=== PATIENT | female | born 1980 | race Caucasian/White ===

== ENCOUNTER 2020-01-06 20:43 | Emergency (ER) | payer OTHER, SELFPAY ==
[2020-01-06 20:55] VITALS: BP 127/94; PULSE 80; RESP 18; TEMP 36.7; O2SAT 98; BMI 24.9
[2020-01-06 20:55] LABS: Apearance,Urine Clear (Clear); Bilirubin,Urine Negative (Negative); Blood, Urine Negative (Negative); Color,Urine Yellow (Yellow); Glucose,Urine (UA) Negative (Negative); Ketones,Urine Negative (Negative); Protein,Urine Negative (Negative); UTC Leukocyte Esterase,Urine Negative (Negative); UTC Nitrate,Urine Negative (Negative); Urobilinogen,Urine 0.2 EU/dl (0.2)
--- NOTE | 2020-01-06 21:09 | HMH.EDUTC ---
[facility] – [place] Disposition Clinical Impression: Dysuria Disposition: Still a Patient Condition on Discharge: Good Additional Instructions: Transferred to ER for further workup Referrals: PCPJulianne [Primary Care Provider] - Time of Disposition: 21:13 Medical Decision Making - Maldonado Inquiry Pt receiving controlled substance: No Vital Signs: 01/06/20 20:55 Temperature 98.1 F Temperature Source Oral Pulse Rate [Radial] 80 Respiratory Rate 18 Blood Pressure [Right Arm] 127/94 H Blood Pressure Mean [Right Arm] 105 Blood Pressure Source [Right Arm] Automatic Cuff Blood Pressure Position [Right Arm] Sitting 02 Sat by Pulse Oximetry 98 Oxygen Delivery Method Room Air - Lab Data Lab results reviewed: Yes: I reviewed the patient's lab results. Lab Results 01/06/20 20:50: Urine Color Yellow, Urine Appearance Clear, Urine pH 6.0, Ur Specific [place] 1.020, Urine Protein Negative, Urine Glucose (UA) Negative, Urine Ketones Negative, Urine Blood Negative, Urine Nitrate Negative, Urine Bilirubin Negative, Urine Urobilinogen 0.2, Ur Leukocyte Esterase Negative Medical Decision Narrative: Urine normal, but patient concerned about kidney stone or underlying pathology. She is requesting CT scan and will be transferred to ER. [facility] [place] HPI - General Stated complaint: Possible Kidney strones or Infection Time Seen by Provider: 01/06/20 20:55 Mode of Arrival: Ambulatory Source of Information: Patient Limitations: No Limitations Description of Symptoms (Recalled from Triage Doc. by RN): possible uti left flank pain HEENT Symptoms (Recalled from RN notes): No Resp Symptoms (Recalled from RN notes): No Skin Symptoms (Recalled from RN notes): No MS Symptoms (Recalled from RN notes): No Functional Status (Recalled from RN notes): wnl - History of Present Illness Provider Complaint: Cloudy urine, with sediment, and low back pain X 2 weeks. No fever. No nausea or vomiting. Worse tonight - left flank pain radiating around side. Has urethral pain at times. States she does not stay well hydrated. No urinary frequency. Onset (ago): day(s) (2) Location: abdomen Radiation: back, flank Relieving factors: none Exacerbating factors: none Associated symptoms: denies other symptoms Treatments prior to arrival: none - Related Data Previous Rx's Medication Instructions Recorded amoxicillin 875 mg tablet 875 mg PO BID 10 Days #20 tab 12/11/17 benzonatate 100 mg capsule 100 mg PO TID PRN #30 cap 12/11/17 Allergies Allergy/AdvReac Type Severity Reaction Status Date / Time No Known Allergies Allergy Verified 12/11/17 12:02 - Worker's Comp Is this a Worker's Comp case?: No [facility] History - Hepatitis A Screen Drug use history?: No High risk sexual behaviors?: No History of sexually transmitted infection?: No Currently employed?: No Childcare worker?: No Do you have indoor plumbing?: Yes Do you have electricity?: Yes Attestation statement:: This patient has been screened for Hepatitis A risk factors. I have reviewed the patient's past medical history: Yes Medical History: Denies:: Cancer, Diabetes Mellitus Type 1, Diabetes Mellitus Type 2, MRSA Amputation: No - Social History Smoking Status: Never smoker Alcohol Intake: never Occupational Status: employed Housing: house ROS Obtained: Yes All systems reviewed & no additional complaints - Genitourinary Female Genitourinary: Reports dysuria, Denies urinary frequency Physical Exam - General General appearance: alert, other (uncomfortable) - Head Head exam: atraumatic, normocephalic - Eye Eye exam: Present: PERRL - ENT ENT exam: Present: normal oropharynx - Respiratory Respiratory exam: Present: normal lung sounds bilaterally - Cardiovascular Cardiovascular exam: Present: regular rate, normal rhythm - Abdominal Exam Abdominal exam: Present: soft, normal bowel sounds. Absent: distention, tenderness, guarding - Back Exam Back exam: Pre
[2020-01-06 21:50] VITALS: BP 130/92; PULSE 83; RESP 16; TEMP 37.2; O2SAT 100; BMI 24.9
--- NOTE | 2020-01-06 21:57 | CT_ITS ---
PROCEDURE: CT ABDOMEN PELVIS WO CON CLINICAL INDICATION: flank pain Bilateral flank pain COMPARISON: No exams were available for comparison TECHNIQUE: Axial images obtained with sagittal and coronal reformats. All CT scans at the facility use one or more dose reduction, viz: automated exposure control, ma/kV adjustment per patient size (including targeted exams where dose is matched to indication, i.e. head), or iterative reconstruction technique. FINDINGS: LOWER THORAX: There are bilateral breast implants present. ABDOMEN & PELVIS: Prior cholecystectomy. Liver, spleen, adrenal glands, pancreas, have an unremarkable appearance. No renal or ureteral calculi. No hydronephrosis. There is some cortical scarring of the right kidney. Small nodular opacity is present lateral to the right kidney at 1 by 0.6 cm etiology indeterminate. There is a mild amount of retained colonic feces. No intestinal obstruction or free air. No evidence of appendicitis. The appendix is retrocecal. The uterus is bulky. Right ovary is slightly prominent at 4 by 2.7 cm. The no acute bony findings. There is a small amount of fluid in the cul-de-sac. No acute bony findings. IMPRESSION: 1. No acute finding apparent. 2. Bulky uterus with mild prominence of the right ovary and fluid in the cul-de-sac. Pelvic ultrasound may provide more thorough evaluation. Dictated by: Oz Espinal MD 01/07/2020 07:41 Oz Espinal MD in [place] 01/07/2020 07:41
[2020-01-06 22:00] VITALS: BP 115/71; PULSE 76; RESP 17; O2SAT 99
[2020-01-06 22:30] VITALS: BP 106/72; PULSE 77; RESP 17; O2SAT 98
[2020-01-06 22:39] LABS: Basophils # 0.1 K/mm3 (0-0.2); Basophils % 0.6 % (0.1-2.0); Eosinophils # 0.3 K/mm3 (0.0-0.4); Eosinophils % 2.6 % (0.1-12.0); Hematocrit 42.9 % (37.0-47.0); Hemoglobin 14.8 g/dL (12.2-16.2); Lymphocytes # 3.7 K/mm3 (0.7-4.5); Lymphocytes % 38.5 % (10-50); Mean Corpuscular HGB Conc 34.4 g/dL (31.8-35.4); Mean Corpuscular Hemoglobin 30.2 pg (27.0-31.2); Mean Platelet Volume 7.7 fl (7.4-10.4); Monocytes # 0.6 K/mm3 (0.1-1.0); Monocytes % 5.7 % (1.7-9.3); Neutrophils % 52.5 % (37.0-80.0); Platelet Count 265 K/mm3 (142-424); Red Blood Count 4.88 M/mm3 (4.20-5.40); Red Cell Distribution Width 13.2 % (11.5-17.5); White Blood Count 9.5 K/mm3 (4.8-10.8)
[2020-01-06 22:44] LABS: Chloride 103 mmol/L (98-107)
[2020-01-06 22:45] LABS: Potassium 4.1 mmoL/L (3.5-5.1); Sodium 137 mmol/L (136-145)
[2020-01-06 22:47] LABS: Alanine Aminotransferase 9 U/L (12-78); Aspartate Amino Transferase 24 U/L (14-36); Blood Urea Nitrogen 20 mg/dl (7-17); Creatinine Clearance Estimated 87 mL/min (50-200); Estimated Glomerular Filt Rate 70 ml/min (>60); GFR (African American) 84 ML/MIN (>60)
[2020-01-06 22:48] LABS: Albumin Level 4.4 g/dl (3.5-5.0); Albumin/Globulin Ratio 1.6 (1.1-1.8); Alkaline Phosphatase 71 U/L (38-126); Anion Gap 10.1 mEq/L (5-15); Bilirubin,Total 0.4 mg/dl (0.2-1.3); Calcium 9.3 mg/dl (8.4-10.2); Carbon Dioxide 28 mmol/L (22.0-30.0); Globulin 2.7 g/dL (1.3-3.2); Glucose 91 mg/dl (74-100); Total Protein,Serum 7.1 g/dl (6.3-8.2)
[2020-01-06 23:00] VITALS: BP 119/82; PULSE 74; RESP 17; O2SAT 99
[2020-01-06 23:12] LABS: Urine Pregnancy, HCG Qual. Negative (Negative)
--- NOTE | 2020-01-06 23:17 | HMH.EDUROGF ---
ED Disposition Clinical Impression: Dysuria, Flank pain, acute Disposition: Home, Self-Care Condition on Discharge: Good Instructions: DI for Flank Pain Additional Instructions: see pcp and insurance analyst for follow up and urine culture results Prescriptions: levoFLOXacin [Levaquin 500mg tab] 500 mg PO DAILY #7 tab Transmission Status: Pending to [id number] Referrals: PCP,No [Primary Care Provider] - - Critical Care Critical Care Time: No Attestation: On 01/06/20, the high probability of a clinically significant, sudden or life threatening deterioration of the following system(s) required my full and direct attention, intervention and personal management. The time I documented below is in addition to time spent performing reported procedures but includes the following listed in this critical care notation. Medical Decision Making - Medical Records Medical records reviewed: Yes: I reviewed the patient's medical records. - Maldonado Inquiry Pt receiving controlled substance: No Vital Signs: 01/06/20 20:55 01/06/20 21:50 01/06/20 22:00 Temperature 98.1 F 99.0 F Temperature Source Oral Oral Pulse Rate [Radial] 80 83 76 Respiratory Rate 18 16 17 Blood Pressure [Right Arm] 127/94 H 130/92 H 115/71 Blood Pressure Mean [Right Arm] 105 104 85 Blood Pressure Source [Right Arm] Automatic Cuff Automatic Cuff Automatic Cuff Blood Pressure Position [Right Arm] Sitting Sitting Supine 02 Sat by Pulse Oximetry 98 100 99 Oxygen Delivery Method Room Air Room Air Room Air 01/06/20 22:30 01/06/20 23:00 Temperature Temperature Source Pulse Rate [Radial] 77 74 Respiratory Rate 17 17 Blood Pressure [Right Arm] 106/72 L 119/82 Blood Pressure Mean [Right Arm] 83 94 Blood Pressure Source [Right Arm] Automatic Cuff Automatic Cuff Blood Pressure Position [Right Arm] Supine Supine 02 Sat by Pulse Oximetry 98 99 Oxygen Delivery Method Room Air Room Air - Lab Data Lab results reviewed: Yes: I reviewed the patient's lab results. Lab Results 01/06/20 20:50: Urine Color Yellow, Urine Appearance Clear, Urine pH 6.0, Ur Specific [place] 1.020, Urine Protein Negative, Urine Glucose (UA) Negative, Urine Ketones Negative, Urine Blood Negative, Urine Nitrate Negative, Urine Bilirubin Negative, Urine Urobilinogen 0.2, Ur Leukocyte Esterase Negative 01/06/20 21:11: Urine HCG, Qual Negative 01/06/20 22:10: WBC 9.5, RBC 4.88, Hgb 14.8, Hct 42.9, MCV 88.0, MCH 30.2, MCHC 34.4, RDW 13.2, Plt Count 265, MPV 7.7, Neut % (Auto) 52.5, Lymph % (Auto) 38.5, [place] % (Auto) 5.7, Eos % (Auto) 2.6, Baso % (Auto) 0.6, Neut # (Auto) 5.0, Lymph # (Auto) 3.7, [place] # (Auto) 0.6, Eos # (Auto) 0.3, Baso # (Auto) 0.1 01/06/20 22:10: Sodium 137, Potassium 4.1, Chloride 103, Carbon Dioxide 28, Anion Gap 10.1, BUN 20 H, Creatinine 0.90, Estimated Creat Clear 87, Estimated GFR 70, Est GFR ( Amer) 84, Glucose 91, Calcium 9.3, Total Bilirubin 0.4, AST 24, ALT 9 L, Alkaline Phosphatase 71, Total Protein 7.1, Albumin 4.4, Globulin 2.7, Albumin/Globulin Ratio 1.6 Result diagrams: 01/06/20 22:10 01/06/20 22:10 Orders (Tests/Meds): ED MEDICATIONS Generic Name Dose Route Start Last Admin Trade Name Freq PRN Reason Stop Dose Admin Sodium Chloride 1,000 mls @ 999 mls/hr 01/06/20 22:00 01/06/20 22:18 Sod Chlor 0.9% 1000ml Bag IV 01/06/20 23:00 999 mls/hr .Q1H1M RON Administration Discontinued Medications Generic Name Dose Route Start Last Admin Trade Name Freq PRN Reason Stop Dose Admin Ketorolac Tromethamine 30 mg 01/06/20 21:58 01/06/20 22:19 Ketorolac 30mg/Ml Vial IV 01/06/20 21:59 30 mg ONCE ONE Administration Ondansetron HCl 4 mg 01/06/20 21:58 01/06/20 22:18 Ondansetron 4mg/2ml Vial IV 01/06/20 21:59 4 mg ONCE ONE Administration ORDERS Category Date Time Status CT abdomen pelvis wo con Stat Cat Scan 01/06/20 21:57 Taken Urinalysis and Microscopic Stat Lab 01/06/20 23:16 Ordered
[2020-01-06 23:35] LABS: Appearance,Urine CLEAR (Clear); Bilirubin,Urine Negative (Negative); Blood, Urine Negative (Negative); Color,Urine YELLOW (Yellow); Glucose,Urine (UA) Negative (Negative); Ketones,Urine Negative (Negative); Leukocyte Esterase,Urine Negative (Negative); Microscopic, Urine URINE MICROSCOPIC (MICROSCOPIC); Nitrate,Urine Negative (Negative); Protein,Urine Negative (Negative); Specific Gravity, Urine 1.025 (1.005-1.030); Urobilinogen,Urine 0.2 EU/dl (0.2)
[2020-01-06 23:51] VITALS: BP 121/89; PULSE 76; RESP 16; TEMP 37.2; O2SAT 95
== END 2020-01-06 23:53 | disposition home or self-care (01) ==
LOC: UTC 20:57 → ER 21:09
PROVIDERS: Physician Assistant; Emergency Provider Emergency Medicine
DX: R30.0 Dysuria (principal); R10.12 Left upper quadrant pain
CPT/HCPCS: 74176; 80053; 81001; 81003; 81025; 85025; 96365; 96375; 99283; J2405

== ENCOUNTER 2020-07-20 20:02 | Emergency (ER) | payer OTHER, SELFPAY ==
[2020-07-20 20:13] VITALS: BP 150/90; PULSE 93; RESP 16; TEMP 37.3; O2SAT 98; BMI 24.9
[2020-07-20 20:20] VITALS: BP 159/90; PULSE 93; RESP 16; TEMP 37.3; O2SAT 98; BMI 24.7
--- NOTE | 2020-07-20 20:32 | HMH.EDUTC ---
[facility] – [place] Disposition Clinical Impression: Bronchitis Sinusitis Qualifiers: Sinusitis location: unspecified location Chronicity: unspecified Qualified Code(s): J32.9 - Chronic sinusitis, unspecified Disposition: Home, Self-Care Condition on Discharge: Good Instructions: Sinusitis, Acute Bronchitis, DI for Sinusitis, Azithromycin Additional Instructions: ? Start antibiotic today. Be sure to complete entire prescription even if feeling better ? Monitor temp. Tylenol every 4 hours as needed and / or ibuprofen every 6 hours as needed ( As long as your primary care physician has told you that it ok to take both. For fever/aches/pains ER if no less than 101 despite Tylenol or Motrin ? Humidifier/vaporizer or hot steamy shower ? Inhaler every 4-6 hours as needed like we discussed. If unsure how to use it, ask pharmacist to demonstrate how. Should help open airways and improve cough, wheezing, and shortness of breath ? Mucinex for your cough. Be sure to drink lots of water. Follow up IMMEDIATELY for new or worsening of symptoms OR no noticeable improvement over the next 48-72 hours. 911 immediately for any life threatening symptoms such as chest pain or difficulty breathing Over the counter Muscle rubs and patches may help with muscle spasm pain in shoulder Over the counter Motrin may help with pain and body aches Follow up with your Family Doctor if no improvement or any worsening of symptoms Prescriptions: Albuterol Sulfate [Proventil-HFA 90mcg/puff Inh] 1 - 2 puffs IH Q4HP PRN #1 inh PRN Reason: Shortness Of Breath Transmission Status: Pending to [facility] [place] Fluticasone Propionate [Flonase 50mcg nasal spray 16gm] 1 spr NS DAILY #1 bottle Transmission Status: Pending to [facility] [place] guaiFENesin [Mucinex 600mg tablet] 1 - 2 tab PO Q12 PRN #20 tab.er.12h PRN Reason: Congestion Transmission Status: Pending to [facility] [place] Azithromycin [Z-Micah 250mg Tab] 250 mg PO DIRECTED #6 tab Transmission Status: Pending to [facility] [place] Referrals: Cortney Bowling [Primary Care Provider] - As needed Time of Disposition: 21:11 Medical Decision Making - Maldonado Inquiry Pt receiving controlled substance: No Maldonado was queried for this patient: No Vital Signs: 07/20/20 20:13 07/20/20 20:20 07/20/20 21:05 Temperature 99.1 F 99.1 F 99.1 F Temperature Source Oral Oral Pulse Rate 93 H Pulse Rate [Right] 93 H 93 H Respiratory Rate 16 16 16 Blood Pressure 159/90 H Blood Pressure [Right Arm] 150/90 H 159/90 H Blood Pressure Mean [Right Arm] 110 113 Blood Pressure Source [Right Arm] Automatic Cuff Blood Pressure Position [Right Arm] Sitting 02 Sat by Pulse Oximetry 98 98 Oxygen Delivery Method Room Air - Lab Data Lab results reviewed: Yes: I reviewed the patient's lab results. Lab Results 07/20/20 20:26: Influenza Type A Ag Negative, Influenza Type B Ag Negative 07/20/20 20:41: Strep Scn [facility] Negative Orders (Tests/Meds): ED MEDICATIONS Discontinued Medications Generic Name Dose Route Start Last Admin Trade Name Freq PRN Reason Stop Dose Admin Azithromycin 500 mg 07/20/20 21:02 07/20/20 21:04 Azithromycin 250mg Tablet PO 07/20/20 21:03 500 mg ONCE ONE Administration Protocol ORDERS Category Date Time Status Covid-19 Nasal PCR ([facility]) Routine Lab 07/20/20 20:26 Ordered Strep Screen Confirmation Stat Micro 07/20/20 20:41 Received Medical Decision Narrative: Discussed CXR with patient and she declined at this time States that she will follow up with her PCP if no improvement [facility] [place] HPI - General Stated complaint: congestion, sneezing, cough body aches Time Seen by Provider: 07/20/20 20:33 Mode of Arrival: Ambulatory Source of Information: Patient Limitations: No Limitations Description of Symptoms (Recalled from Triage Doc. by RN): PATIENT C/O BODY ACHES, CONGESTION, COUGH WITH PAIN IN CHEST/UPPER BACK,
[2020-07-20 20:40] LABS: UTC Influenza A Antigen Negative (Negative); UTC Influenza B Antigen Negative (Negative)
[2020-07-20 20:53] LABS: UTC Strep Screen (Rapid) Negative (Negative)
[2020-07-20 21:05] VITALS: BP 159/90; PULSE 93; RESP 16; TEMP 37.3; O2SAT 98
== END 2020-07-20 21:18 | disposition home or self-care (01) ==
LOC: ER 20:14 → UTC 20:14
PROVIDERS: Emergency Provider Nurse Practitioner; PCP Family Medicine
DX: J20.9 Acute bronchitis, unspecified (principal); J32.9 Chronic sinusitis, unspecified; Z20.822 Contact with and (suspected) exposure to COVID-19
CPT/HCPCS: 87804; 87880; 99202; G0463; U0003